=== PATIENT | male | born 1990 | race Caucasian/White ===

== ENCOUNTER 2018-05-03 05:50 | Outpatient (CLI) | payer OTHER ==
[~2018-05-03] VITALS: Ht 172.7 cm; Wt 136.1 kg
[2018-05-03] MEDS ORDERED: TRIA1TAB3 PO (09:32)
[2018-05-03] MEDS ORDERED: TRIA1TAB5 PO (09:40)
[2018-05-04] MEDS ORDERED: AMOX250S5 PO (08:41)
[2018-05-04] MEDS ORDERED: TETRACAINESUCKERS MT (08:41)
[2018-05-04] MEDS ORDERED: DEXAINTSOL PO (08:41)
[2018-05-04] MEDS ORDERED: HYDR15SO8 PO (08:41)
== END 2018-05-03 09:41 | disposition home or self-care (01) ==
LOC: PREOP 05:50
PROVIDERS: ATTEND Otolaryngology Otolaryngology/Facial Plastic Surgery
DX: Z01.818 Encounter for other preprocedural examination (principal)

== ENCOUNTER 2018-05-04 05:50 | Day surgery (SDC) | payer OTHER ==
[~2018-05-04] VITALS: Ht 172.7 cm; Wt 136.1 kg
[~2018-05-04 05:50] MED LIST: TRIA1TAB3 PO; TRIA1TAB5 PO
--- OUTSIDE RECORDS SUMMARY | 2018-05-04 05:57 | XMS REPORT | Referral Summary ---
Author Author [facility], [facility] Organization [facility] Address Unknown Phone Unavailable Care Team Providers Care Insurance Rater Name Role Phone No PCP, [facility] PCP Encounter Date(s): 12/29/15 - 12/29/15 [facility] [address] [place] [address] [facility] Discharge Diagnosis: Acute bronchitis Discharge Diagnosis: Wheeze Discharge Diagnosis: Hypertension Discharge Disposition: 01-Home or Self Care Attending Physician: Provider, Immediate Care Attending Physician: Kingsley Ceja PA-C Admitting Physician: Provider, Immediate Care Vital Signs Most recent to 1 oldest [Reference Range]: Temperature Oral 37.3 degC [35.8-37.3 degC] (12/29/15 9:41 AM) Peripheral Pulse 92 bpm Rate [60-100 bpm] (12/29/15 9:41 AM) Blood Pressure 163/94 mmHg [90-140/60-90 mmHg] *HI* (12/29/15 9:41 AM) SpO2 97 % (12/29/15 9:41 AM) Problem List No Known Problems Allergies, Adverse Reactions, Alerts No Known Allergies Medications albuterol CFC free 90 mcg/inh inhalation aerosol 2 puffs, Inhalation, q4hr, as needed for wheezing, use with spacer chamber, # 18 g, 0 Refill(s), Pharmacy[place] [facility] [place] [id number] Start Date: 12/29/15 Status: Ordered Results No data available for this section Immunizations No data available for this section Procedures No data available for this section Social History Social History Type Response Smoking Status Current every day smoker Assessment and Plan Extracted from: Title: Office Visit Note Author: Kingsley Ceja PA-C Date: 12/29/15 Assessment/Plan Acute bronchitis Will treat with albuterol inhaler and Z-winifred. Instructed patient if symptoms worsen or new symptoms arise to seek medical attention here, with family physicianor at the ER. Instructed patient if symptoms do not improve follow up with PCP in 2-3 days. Patient voiced understanding and agreed with treatment plan. Patient dismissed in stable condition. Ordered: Office Visit Level 3 Est 87122 Hypertension Patient denies any prior Hx of HTN, thinks it is elevated because of his current illness. I recommend that he continue to monitor it. Ordered: Office Visit Level 3 Est 64790 Wheeze Ordered: Office Visit Level 3 Est 20205 Orders: albuterol, 2 puffs, Inhalation, q4hr, as needed for wheezing, use with spacer chamber, # 18 g, 0 Refill(s), Pharmacy: [facility] [id number]
--- OUTSIDE RECORDS SUMMARY | 2018-05-04 05:57 | XMS REPORT | Referral Summary ---
Author Author [facility] Organization [facility] Address Unknown Phone Unavailable Care Team Providers Care Pump Machine Operator Name Role Phone No PCP, Pt States PCP Encounter VC Date(s): 12/09/15 - 12/09/15 [facility] [address] [place], [place] [address] Discharge Diagnosis: Nonspecific chest pain Discharge Diagnosis: Epigastric pain Discharge Disposition: 01-Home or Self Care Attending Physician: Alexis Oneil MD Admitting Physician: Alexis Oneil MD Vital Signs Most recent to 1 2 oldest [Reference Range]: Temperature Oral 36.3 degC 36.3 degC [35.8-37.3 degC] (12/09/15 10:23 AM) (12/09/15 10:23 AM) Peripheral Pulse 98 bpm Rate [60-100 bpm] (12/09/15 10:23 AM) Heart Rate Monitored 103 bpm [60-100 bpm] *HI* (12/09/15 10:23 AM) Respiratory Rate 16 br/min 18 br/min [14-20 br/min] (12/09/15 10:23 AM) (12/09/15 10:23 AM) Blood Pressure 128/75 mmHg 128/75 mmHg [90-140/60-90 mmHg] (12/09/15 10:23 AM) (12/09/15 10:23 AM) Mean Arterial 85 mmHg Pressure, Cuff (12/09/15 10:23 AM) SpO2 97 % 97 % (12/09/15 10:23 AM) (12/09/15 10:23 AM) Problem List No Known Problems Allergies, Adverse Reactions, Alerts No Known Allergies Medications Zantac 150 oral tablet 150 mg 1 tabs, Oral, BID, # 30 tabs, 0 Refill(s) Start Date: 12/09/15 Status: Ordered Zofran ODT 4 mg oral tablet, disintegrating 4 mg 1 tabs, Oral, q6hr, Nausea, # 10 tabs, 0 Refill(s) Start Date: 12/09/15 Status: Ordered Results Hematology Most recent to 1 oldest [Reference Range]: WBC [4.8-10.8 10.8 10*3/uL 10*3/uL] (12/09/15 8:35 AM) RBC [4.60-6.20] 5.00 (12/09/15 8:35 AM) Hgb [14.0-18.0 13.9 gm/dL gm/dL] *LOW* (12/09/15 8:35 AM) Hct [42.0-52.0 %] 42.2 % (12/09/15 8:35 AM) MCV [82.0-99.0 fL] 84.4 fL (12/09/15 8:35 AM) MCH [27.0-32.0 pg] 27.8 pg (12/09/15 8:35 AM) MCHC [32.0-36.0 32.9 gm/dL gm/dL] (12/09/15 8:35 AM) RDW [11.5-14.5 %] 13.4 % (12/09/15 8:35 AM) Platelet [150-400 219 10*3/uL 10*3/uL] (12/09/15 8:35 AM) MPV [9.4-12.3 fL] 11.4 fL (12/09/15 8:35 AM) Immature 0.2 % Granulocytes (12/09/15 8:35 AM) [0.0-1.0 %] Neutrophils [51-75 58 % %] (12/09/15 8:35 AM) Lymphocytes [20-46 29 % %] (12/09/15 8:35 AM) Monocytes [4-11 %] 10 % (12/09/15 8:35 AM) Eosinophils [0-4 %] 3 % (12/09/15 8:35 AM) Basophils [0-2 %] 0 % (12/09/15 8:35 AM) Neutro Absolute 6.26 10*3 [1.90-7.00 10*3] (12/09/15 8:35 AM) Lymph Absolute 3.12 10*3 [0.80-3.30 10*3] (12/09/15 8:35 AM) Callahan Absolute 1.05 10*3 [0.30-1.00 10*3] *HI* (12/09/15 8:35 AM) Eos Absolute 0.34 10*3 [0.00-0.50 10*3] (12/09/15 8:35 AM) Baso Absolute 0.02 10*3 [0.00-0.20 10*3] (12/09/15 8:35 AM) Chemistry Most recent to 1 oldest [Reference Range]: Sodium Lvl [136-144 140 mEq/L mEq/L] (12/09/15 7:19 AM) Potassium Lvl 3.7 mEq/L [3.6-5.1 mEq/L] (12/09/15 7:19 AM) Chloride [99-109 105 mEq/L mEq/L] (12/09/15 7:19 AM) CO2 [22-32 mEq/L] 28 mEq/L (12/09/15 7:19 AM) AGAP [3-20] 7 (12/09/15 7:19 AM) BUN [4-20 mg/dL] 11 mg/dL (12/09/15 7:19 AM) Glucose Lvl [70-100 102 mg/dL mg/dL] *HI* (12/09/15 7:19 AM) Creatinine Lvl 0.92 mg/dL [0.64-1.27 mg/dL] (12/09/15 7:19 AM) eGFR [>60] >60 1 (12/09/15 7:19 AM) Calcium Lvl 9.4 mg/dL [8.6-10.0 mg/dL] (12/09/15 7:19 AM) Albumin Lvl [3.5-4.8 4.3 gm/dL gm/dL] (12/09/15 7:19 AM) Total Protein 7.6 gm/dL [6.1-7.9 gm/dL] (12/09/15 7:19 AM) Globulin [1.9-4.3 3.3 gm/dL gm/dL] (12/09/15 7:19 AM) ALT [17-63 U/L] 44 U/L (12/09/15 7:19 AM) AST [15-41 U/L] 28 U/L (12/09/15 7:19 AM) Alk Phos [26-104 73 U/L U/L] (12/09/15 7:19 AM) Bili Total [0.2-1.2 0.5 mg/dL 2 mg/dL] (12/09/15 7:19 AM) Troponin [<0.06 <0.05 ng/mL ng/mL] (12/09/15 7:19 AM) 1Result Comment: Multiply eGFR results by 1.21 for race. 2Result Comment: Naproxen, specifically the metabolite O-desmethylnaproxen, may cause spurious elevation in Total Bilirubin levels. Immunizations No data available for this section Procedures No data available for this section Social History Social History Type Response Smoking Status Current every day smoker Assessment and Plan No data available for this section
--- OUTSIDE RECORDS SUMMARY | 2018-05-04 05:57 | XMS REPORT ---
Author Author MIGRATION, PROVIDER Organization Unknown Address Unknown Phone Unavailable Care Team Providers Care Gun Synchronizer Name Role Phone MIGRATION, PROVIDER Unavailable Unavailable PROBLEMS Unknown Problems ALLERGIES No Information ENCOUNTERS Encounter Location Date Diagnosis [address] [phone] Jul[facility] [address] [phone] Jul, [address] [phone] Aug, [address] [phone] Jul, IMMUNIZATIONS No Known Immunizations SOCIAL HISTORY Never Assessed REASON FOR VISIT [facility] [place]AN OF CARE VITAL SIGNS MEDICATIONS Unknown Medications RESULTS No Results PROCEDURES No Known procedures INSTRUCTIONS MEDICATIONS ADMINISTERED No Known Medications
--- OUTSIDE RECORDS SUMMARY | 2018-05-04 05:57 | XMS REPORT ---
Author Author MIGRATION, PROVIDER Organization Unknown Address Unknown Phone Unavailable Care Team Providers Care Agricultural Extension Educator Name Role Phone MIGRATION, PROVIDER Unavailable Unavailable PROBLEMS Unknown Problems ALLERGIES No Information ENCOUNTERS Encounter Location Date Diagnosis [place] [address] [place] [phone] Jul, [place] [address] [place] [id number] Jul, [place] [address] [place] [phone] Aug, [place] [address] [place] [phone] Jul, IMMUNIZATIONS No Known Immunizations SOCIAL HISTORY Never Assessed REASON FOR VISIT [facility] PLAN OF CARE VITAL SIGNS MEDICATIONS Medication Instructions Dosage Frequency Start Date End Date Duration Status HydrOXYzine HCl 50 mg 1 1 Tablet by Oral route 2 times per day Aug, Active Klonopin 0.5 mg take 1 tablet by Oral route 2 times per day Aug, Active RESULTS No Results PROCEDURES No Known procedures INSTRUCTIONS MEDICATIONS ADMINISTERED No Known Medications
--- OUTSIDE RECORDS SUMMARY | 2018-05-04 05:57 | XMS REPORT | Continuity of Care Document ---
Author Author [facility] Organization [facility] Address Unknown Phone Unavailable Allergies Active Description Code Type Severity Reaction Onset Reported/Identified Relationship to Patient Clinical Status Yes Ativan Drug N/A Suicidal Yes No Known Allergies No Known Allergies Drug Allergy Unknown N/A 2013 Yes No Known Allergies NKMA N/A N/A 12/09/2015 Yes No Known Allergies NKMA N/A N/A 12/09/2015 Yes lorazepam lorazepam Drug Allergy Severe SUICIDAL IDEATION 08/08/2016 Medications Medication Packaging Start Date Stop Date Route Dosage Sig ondansetron(Zofran) 2 mL 201512/09/2015 IV Push 4 mg 4 mg=2 mL, IV Push, Once acetaminophen(acetaminophen) 2 tabs 12/09/2015 12/09/2015 Oral 1,000 mg 1,000 mg=2 tabs, Oral, Once, PRN: Headache aspirin(aspirin) 4 tabs 12/09/2015 12/09/2015 Oral 324 mg 324 mg=4 tabs, Oral, Once ondansetron(Zofran ODT 4 mg oral tablet, disintegrating) 1 tabs 12/09/2015 12/29/2015 Oral 4 mg 4 mg=1 tabs, Oral, q6hr, PRN: Nausea, 10 tabs, 0 Refill(s) ranitidine(Zantac 150 oral tablet) 1 tabs 12/09/2015 12/29/2015 Oral 150 mg 150 mg=1 tabs, Oral, BID, 30 tabs, 0 Refill(s) azithromycin(Zithromax Z-Ayden 250 mg oral tablet) 1 packets 12/29/2015 12/29/2015 Oral 1 packets, Oral, Once, as directed on package labeling, 6 tabs, 0 Refill(s) albuterol(albuterol CFC free 90 mcg/inh inhalation aerosol) 2 puffs 12/29/2015 Inhalation 2 puffs, Inhalation, q4hr, use with spacer chamber, PRN: as needed for wheezing, 18 g, 0 Refill(s) albuterol(albuterol) 12/29/2015 12/29/2015 Inhalation 2.5 mg 2.5 mg, Inhalation, Once Problems Date Dx Coded Attending Type Code Diagnosis Diagnosed By 12/15/2015 Alexis Oneil Reason R07.9 Chest pain, unspecified 12/15/2015 Alexis Oneil Final R10.13 Epigastric pain 12/29/2015 Kingsley Ceja Final I10 Essential (primary) hypertension 12/29/2015 Kingsley Ceja Final J20.9 Acute bronchitis, unspecified 12/29/2015 Kingsley Ceja Final R06.2 Wheezing 02/11/2016 Alisa Rankin Final S61.258A Open bite of other finger without damage to nail, initial encounter 08/11/2016 TESSA PAYNE F17.211 NICOTINE DEPENDENCE, CIGARETTES, IN REMISSION 08/11/2016 TESSA PAYNE F41.1 GENERALIZED ANXIETY DISORDER 08/11/2016 TESSA PAYNE G47.39 OTHER SLEEP APNEA 08/11/2016 TESSA PAYNE R03.0 ELEVATED BLOOD-PRESSURE READING, W/O DIAGNOSIS OF HTN 08/11/2016 TESSA PAYNE Z71.3 DIETARY COUNSELING AND SURVEILLANCE 08/11/2016 TESSA PAYNE Z71.89 OTHER SPECIFIED COUNSELING 08/11/2016 YESSI BAUM E78.4 OTHER HYPERLIPIDEMIA 08/11/2016 YESSI BAUM F17.211 NICOTINE DEPENDENCE, CIGARETTES, IN REMISSION 08/11/2016 YESSI BAUM F33.0 MAJOR DEPRESSIVE DISORDER, RECURRENT, MILD 08/11/2016 YESSI BAUM F41.1 GENERALIZED ANXIETY DISORDER 08/11/2016 YESSI BAUM F43.10 POST-TRAUMATIC STRESS DISORDER, UNSPECIFIED 08/11/2016 YESSI BAUM G47.39 OTHER SLEEP APNEA 08/11/2016 YESSI BAUM R03.0 ELEVATED BLOOD-PRESSURE READING, W/O DIAGNOSIS OF HTN 08/11/2016 YESSI BAUM Z71.3 DIETARY COUNSELING AND SURVEILLANCE 08/11/2016 YESSI BAUM Z71.89 OTHER SPECIFIED COUNSELING Procedures Code [place] [address] Pressurized or nonpressurized inhalation treatment for acute airway obstruction for therapeutic purposes and/or for diagnostic purposes such as sputum induction with an aerosol generator, nebulizer, m 2015 20422 Office or other outpatient visit for the evaluation and management of an established patient, which requires at least 2 of these 3 roberts components: An expanded problem focused history; An expanded prob 12/29/2015 90750 Radiologic examination, finger(s), minimum of 2 views 02/11/2016 21342 Immunization administration (includes percutaneous, intradermal, subcutaneous, or intramuscular injections) ; 1 vaccine (single or combination vaccine/toxoid).. 02/11/2016 22802 Tetanus, diphtheria toxoids and acellular pertussis vaccine (Tdap), when administered to individuals 7 years or older, for intramuscular use 2015 22281 Office or other outpatient visit for the evaluation and management of an established patient, which requires at least 2 of these 3 roberts components: An expanded problem focused history; An expanded prob 02/11/2016 71643 HA1C 08/11/2016 48634 PSYTX PT&/FAMILY 45 MINUTES 08/13/2016 27706 CBC 08/16/2016 96188 CMP 08/16/2016 97750 LIPID PANEL 08/16/2016 85799 TSH with reflex Free T4 08/16/2016 50847 SLEEP STUDY UNATT&RESP EFFT 08/28/2016 Results Test Result Range URINALYSIS, ROUTINE - 04/12/14 16:45 UA LEUKOCYTE ESTERASE DIPSTICK NEGATIVE NEGATIVE UA NITRITE DIPSTICK NEGATIVE NEGATIVE UA PROTEIN DIPSTICK NEGATIVE NEGATIVE UA GLUCOSE DIPSTICK NEGATIVE NEGATIVE UA KETONE DIPSTICK NEGATIVE NEGATIVE UA UROBILINOGEN DIPSTICK NORMAL NORMAL UA BILIRUBIN DIPSTICK NEGATIVE NEGATIVE UA BLOOD DIPSTICK NEGATIVE NEGATIVE UA SPECIFIC GRAVITY 1.010 1.015-1.025 UR PH 6.5 5.0-7.0 GLUCOSE (POC) - 04/12/14 17:45 GLUCOSE (POC) 114 mg/dL 70-99 CBC W/DIFF - 07/09/16 01:21 EOSINOPHIL # 0.3 k/cumm 0.1-0.5 EOSINOPHIL % 4 % 2-4 GRANULOCYTE # 3.9 k/cumm 2.0-9.0 GRANULOCYTE % 44 % 50-75 LYMPHOCYTE # 3.7 k/cumm 1.0-4.0 LYMPHOCYTE % 42 % 20-30 MEAN CELL HGB 27.6 pg 27.0-33.0 MEAN CELL HGB CONCENTRATION 33.2 g/dL 32.0-37.0 MEAN CELL VOLUME 83.2 fl 80.0-100.0 MONOCYTE # 0.9 k/cumm 0.1-1.0 MONOCYTE % 10 % 4-6 RED BLOOD CELL 5.43 m/cumm 4.00-6.00 RED CELL DISTRIBUTION WIDTH 13.8 % 11.0-15.6 WHITE BLOOD CELL 8.8 k/cumm 5.0-10.0 HEMOGLOBIN 15.0 gm/dL 14.0-18.0 HEMATOCRIT 45.2 % 40.0-54.0 PLATELET COUNT 238 k/cumm 150-400 CHEM/HEM PROFILE-BEDSIDE - 07/09/16 01:22 POTASSIUM 3.8 mmol/L 3.5-5.3 METHOD Bedside ANION GAP 21 mmol/L 10-20 METHOD Bedside GLUCOSE 123 mg/dL 70-99 BLOOD UREA NITROGEN 15 mg/dL 7-20 CREATININE 0.9 mg/dL 0.7-1.3 HEMOGLOBIN 15.3 gm/dL 14.0-18.0 HEMATOCRIT 45.0 % 40.0-54.0 SODIUM 145 mmol/L 135-148 CHLORIDE 103 mmol/L 98-110 CARBON DIOXIDE 25 mmol/L 21-32 CALCIUM IONIZED 4.8 mg/dL 4.5-5.3 TROPONIN I BEDSIDE - 07/09/16 01:36 METHOD Bedside TROPONIN I < 0.04 ng/mL < 0.11 CBC W/DIFF - 08/08/16 22:25 EOSINOPHIL # 0.3 k/cumm 0.1-0.5 EOSINOPHIL % 3 % 2-4 GRANULOCYTE # 5.4 k/cumm 2.0-9.0 GRANULOCYTE % 54 % 50-75 LYMPHOCYTE # 3.2 k/cumm 1.0-4.0 LYMPHOCYTE % 33 % 20-30 MEAN CELL HGB 27.3 pg 27.0-33.0 MEAN CELL HGB CONCENTRATION 32.7 g/dL 32.0-37.0 MEAN CELL VOLUME 83.3 fl 80.0-100.0 MONOCYTE # 1.0 k/cumm 0.1-1.0 MONOCYTE % 10 % 4-6 RED BLOOD CELL 5.21 m/cumm 4.00-6.00 RED CELL DISTRIBUTION WIDTH 13.7 % 11.0-15.6 WHITE BLOOD CELL 9.9 k/cumm 5.0-10.0 HEMOGLOBIN 14.2 gm/dL 14.0-18.0 HEMATOCRIT 43.4 % 40.0-54.0 PLATELET COUNT 220 k/cumm 150-450 METABOLIC PANEL, BASIC - 08/08/16 22:25 POTASSIUM 3.8 mmol/L 3.5-5.3 EST GFR (MDRD) > 60 mL/min > 59 ANION GAP 8 mmol/L 5-15 EST CrCl (CG) > 60 mL/min > 59 GLUCOSE 95 mg/dL 70-99 CALCIUM 9.5 mg/dL 8.5-10.1 BLOOD UREA NITROGEN 13 mg/dL 7-20 CREATININE 0.9 mg/dL 0.7-1.3 SODIUM 142 mmol/L 135-148 CHLORIDE 105 mmol/L 98-110 CARBON DIOXIDE 29 mmol/L 21-32 D-DIMER QUANT - 08/08/16 22:25 D-DIMER QUANT < 150 ng/mL 0-229 TROPONIN I BEDSIDE - 08/08/16 22:27 METHOD Bedside TROPONIN I < 0.04 ng/mL < 0.11 Encounters ACCT No. Visit Date/Time Discharge Status Pt. Type Provider Facility Loc./Unit Complaint [id number] 12/09/2015 06:52:00 12/09/2015 10:31:00 DIS Emergency Alexis Oneil [facility] ED Chest pain neck pain [id number] 12/30/2015 05:19:45 Document Registration [id number] 12/10/2015 05:18:18 Document Registration [id number] 11/01/2013 16:58:00 11/01/2013 23:59:59 [facility] Outpatient [id number] 07/26/2017 00:52:00 07/26/2017 01:30:00 DIS Emergency MISHEL AVILEZ [facility] ED itching, rash [id number] 12/11/2016 18:08:00 12/11/2016 19:49:00 DIS Emergency MISHEL AVILEZ [facility] JOSE ED headache [id number] 12/02/2016 01:36:00 12/02/2016 03:10:00 DIS Emergency VIDAL JASON W [facility] JOSE ED Chest pain, L arm and neck pain [id number] 11/21/2016 22:48:00 11/22/2016 01:05:00 DIS Emergency MISHEL AVILEZ [facility] JOSE ED chest pain [id number] 11/10/2016 02:13:00 11/10/2016 04:08:00 DIS Emergency OMERO DAY [facility] JOSE ED swelling high bp [id number] 10/19/2016 20:15:00 10/19/2016 22:20:00 DIS Emergency MILY CARDENAS [facility] JOSE ED chest pain SOB [id number] 10/07/2016 03:38:00 10/07/2016 05:10:00 DIS Emergency OMERO DAY [facility] JOSE ED chest pain left arm pain cough [id number] 08/08/2016 21:13:00 08/09/2016 00:05:00 DIS Emergency Tatum GOLDBERG, [facility] W.EDW [id number] 07/09/2016 01:01:00 07/09/2016 02:45:00 DIS Emergency [id number] 06/22/2016 01:57:00 06/22/2016 02:22:00 DIS Emergency Brannon GOLDBERG, [facility].EDS [id number] 04/12/2014 15:42:00 04/12/2014 18:11:00 DIS Emergency Danial GOLDBERG, [facility].EDS [id number] 09/08/2016 20:34:00 09/08/2016 23:59:59 CLS Outpatient YESSI BAUM [id number] 08/11/2016 15:45:00 08/11/2016 23:59:59 CLS Outpatient TESSA PAYNE [id number] 04/12/2014 17:19:50 ACT Document Registration [id number] 02/11/2016 09:05:00 02/11/2016 23:59:00 DIS Outpatient Alisa Rankin [facility] Mur IC ACC CAT BITE [id number] 12/29/2015 09:33:00 12/29/2015 23:59:00 DIS Outpatient Kingsley Ceja [facility] IC ST/FEVER
--- OUTSIDE RECORDS SUMMARY | 2018-05-04 05:57 | XMS REPORT | Continuity of Care Document ---
Author Author Allison GOLDBERG, [facility] Address Unknown Phone Unavailable Payers Payer name Insurance type Covered libertarian ID Authorization(s) Unknown Problems Condition Effective Dates (start - stop) Clinical Status Streptococcal sore throat - *Acute Family History Family Member Diagnosis Age At Onset Status Unknown Social History Social History Element Description Quantity Unknown Allergies, Adverse Reactions, Alerts Substance Reaction Severity Status Unknown Medications Medication Instructions Dosage Effective Dates (start - stop) Status amoxicillin 500 mg capsule take 1 capsule (500MG) by oral route every 12 hours 500 MG - No Longer Active Immunizations Vaccine Date Status Comments Unknown Results Test Name Date and Time Measure Units Reference Range Abnormal Flag Comments Panel Description: Rapid Strep-throat Rapid Strep-throat 17:18:00 Positive Negative A Vital Signs Date / Time: Height Weight Pulse Rate Blood Pressure Temperature /17:13:00 68.00 in 290.20 lbs 128 /min 122/76 mm[Hg] 98.5 F Procedures Procedure Date CEFTRIAXONE SODIUM INJECTION THER/PROPH/DIAG INJ, SC/IM Encounters Encounter Location Date Patient Visit [facility] [address] [facility] Care Advance Directives Directive Effective Date Unknown
[2018-05-04 06:25] VITALS: BP 115/78
[2018-05-04] MEDS: LACTATED RINGERS 1,000 ML IV PRN ×2 (06:25→08:05)
[2018-05-04 06:37] LABS: BASOPHILS % (AUTO) 0 % (0-10); EOSINOPHILS # (AUTO) 0.5 10^3/uL (0.0-0.3); EOSINOPHILS % (AUTO) 6 % (0-10); HEMATOCRIT 41 % (40-54); HEMOGLOBIN 13.8 G/DL (13.3-17.7); LYMPHOCYTES # (AUTO) 2.5 X 10^3 (1.0-4.0); LYMPHOCYTES % (AUTO) 27 % (12-44); MEAN CORPUSCULAR HEMOGLOBIN 27 PG (25-34); MEAN CORPUSCULAR HGB CONC 34 G/DL (32-36); MEAN CORPUSCULAR VOLUME 81 FL (80-99); MEAN PLATELET VOLUME 11.2 FL (7.4-10.4); MONOCYTES # (AUTO) 0.9 X 10^3 (0.0-1.0); MONOCYTES % (AUTO) 10 % (0-12); NEUTROPHILS # (AUTO) 5.3 X 10^3 (1.8-7.8); NEUTROPHILS % (AUTO) 57 % (42-75); PLATELET COUNT 245 10^3/uL (130-400); RED BLOOD COUNT 5.04 10^6/uL (4.35-5.85); RED CELL DISTRIBUTION WIDTH 13.6 % (10.0-14.5); WHITE BLOOD COUNT 9.2 10^3/uL (4.3-11.0)
[2018-05-04 06:55] LABS: BUN/CREATININE RATIO 17; CALCIUM 9.7 MG/DL (8.5-10.1); CARBON DIOXIDE 25 MMOL/L (21-32); CHLORIDE 103 MMOL/L (98-107); CREATININE SERUM 1.02 MG/DL (0.60-1.30); GFR ESTIMATED > 60; GLUCOSE 110 MG/DL (70-105); POTASSIUM 3.7 MMOL/L (3.6-5.0); SODIUM 138 MMOL/L (135-145)
[2018-05-04] MEDS ORDERED: ROCURONIUM 10 MG/ML 5 ML SYRINGE IV ONE (07:00)
[2018-05-04] MEDS ORDERED: NEOSTIGMINE 1 MG/ML 5 ML SYRINGE ONE (07:01)
[2018-05-04] MEDS ORDERED: LIDOCAINE PF 2% 5 ML (XYLOCAINE) VIAL ONE (07:01)
[2018-05-04] MEDS ORDERED: proPOfol 200 MG/20 ML (DIPRIVAN) VIAL IV ONE (07:01)
[2018-05-04] MEDS ORDERED: DEXAMETHASONE 10 MG/ML (DECADRON) 1 ML VIAL ONE (07:01)
[2018-05-04] MEDS ORDERED: GLYCOPYRROLATE 0.2 MG/ML (ROBINUL) 2 ML VIAL ONE (07:01)
[2018-05-04] MEDS ORDERED: ONDANSETRON 4 MG/2 ML (SDV) Z0FRAN ONE (07:01)
[2018-05-04] MEDS ORDERED: MIDAZOLAM 2 MG/2 ML (VERSED) VIAL ONE (07:01)
[2018-05-04] MEDS ORDERED: fentaNYL INJECTION 250 MCG/5 ML AMP ONE (07:01)
[2018-05-04] MEDS ORDERED: SUCCINYLCHOLINE INJ 100 MG/5 ML SYR ONE (07:01)
[2018-05-04] MEDS ORDERED: SEVOFLURANE (ULTANE) 15 ML INHAL SOLN ONE ×2 (07:01→08:41)
--- NOTE | 2018-05-04 07:06 | Progress Note-Pre Operative ---
Pre-Operative Progress Note H&P Reviewed The H&P was reviewed, patient examined and no changes noted. Date Seen by Provider: May 04, 2018 Time Seen by Provider: 06:30 Date H&P Reviewed: May 04, 2018 Time H&P Reviewed: 06:30 Pre-Operative Diagnosis: Tonsillar Hypertrophy with UAO, Chronic Tons CHATO KAMARA MD May 04, 2018 7:06 am
[2018-05-04] MEDS ORDERED: morphine INJ 10 MG/ML 1ML (SYR OR VIAL) ONE (08:19)
[2018-05-04] MEDS ORDERED: NS IV 1000 ML 1,000 ML IV SCH (08:24)
--- NOTE | 2018-05-04 08:24 | Progress Note-Post Operative ---
Post-Operative Progess Note Surgeon (s)/Manager Of Recruiting (s) Surgeon CHATO KAMARA MD Manager Of Recruiting n/a Pre-Operative Diagnosis Tonsillar Hypertrophy with UAO, Chronic Tons Post-Operative Diagnosis same Post-Op Procedure Note Date of Procedure: May 04, 2018 Name of Procedure Performed: Tonsillectomy Description & Findings Description and Findings: n/a Anesthesia Type get Estimated Blood Loss minimal Packing none. Specimen(s) collected/removed tonsils CHATO KAMARA MD May 04, 2018 8:24 am
[2018-05-04] MEDS ORDERED: HYDROcodone/APAP 7.5MG-325 MG/15 ML (LORTAB) UDC PO PRN (08:30)
[2018-05-04] MEDS ORDERED: APAP 325 MG/10.15 ML LIQ (TYLENOL) UDC PO PRN (08:30)
[2018-05-04] MEDS ORDERED: HYDR15SO8 PO (08:41)
[2018-05-04] MEDS ORDERED: AMOX250S5 PO (08:41)
[2018-05-04] MEDS ORDERED: TETRACAINESUCKERS MT (08:41)
[2018-05-04] MEDS ORDERED: DEXAINTSOL PO (08:41)
[2018-05-04] MEDS ORDERED: ONDANSETRON 4 MG/2 ML (SDV) Z0FRAN IVP PRN (08:45)
[2018-05-04] MEDS ORDERED: HYDROmorphone 2 MG/ML VIAL (DILAUDID) IV ONE (08:45)
[2018-05-04] MEDS ORDERED: morphine INJ 10 MG/ML 1ML (SYR OR VIAL) IVP ONE (08:45)
--- NOTE | 2018-05-04 09:22 | Anesthesia-General Post-Op ---
General Patient Condition Mental Status/LOC: Same as Preop Cardiovascular: Satisfactory Nausea/Vomiting: Absent Respiratory: Satisfactory Pain: Controlled Complications: Absent Post Op Complications Complications None Follow Up Care/Instructions Patient Instructions None needed. Anesthesia/Patient Condition Patient Condition Patient is doing well, no complaints, stable vital signs, no apparent adverse anesthesia problems. No complications reported per nursing. D/C home per [facility] Criteria: Yes JACQUI SOLIS CRNA May 04, 2018 09:22
[2018-05-04 09:25] VITALS: BP 112/65
[2018-05-04 09:55] VITALS: BP 104/66
[2018-05-04 10:25] VITALS: BP 109/73
== END 2018-05-04 11:25 | disposition home or self-care (01) ==
LOC: SDC 05:50
PROVIDERS: ATTEND Otolaryngology Otolaryngology/Facial Plastic Surgery
DX: J35.01 Chronic tonsillitis (principal); I10 Essential (primary) hypertension; G47.33 Obstructive sleep apnea (adult) (pediatric); E66.01 Morbid (severe) obesity due to excess calories; Z68.42 Body mass index [BMI] 45.0-49.9, adult; Z87.891 Personal history of nicotine dependence
CPT/HCPCS: 36415; 80048; 85025; 87081; 88304